=== PATIENT | female | born 1930 | race Caucasian/White ===

== ENCOUNTER → 2017-04-02 | Outpatient (CLI) | payer OTHER ==
[~2017-04-02] MED LIST: ASPI81 PO; CREON12 PO; ENAL5TAB PO; GLUCTAB PO; PREV30CA36 PO; SIMV80TA PO
--- NOTE | 2017-04-02 15:31 | RADRPT ---
EXAM DATE/TIME: 04/02/2017 14:41 [facility] COMPARISON: No previous studies available for comparison. INDICATIONS : Bilateral leg pain and swelling. MEDICAL HISTORY : Hypertension. Dibetic. SURGICAL HISTORY : None. ENCOUNTER: Initial ACUITY: 2 months PAIN SCORE: 10/10 LOCATION: Bilateral leg. TECHNIQUE: Venous ultrasound of the left and right leg was performed from the inguinal ligament to the proximal calf. Real-time, color Doppler and spectral tracing, compression and augmentation techniques were us ed. FINDINGS: RIGHT LEG: There is normal compressibility of the deep venous system from the inguinal region to the proximal ca lf. No echogenic clot is seen in the lumen of the common femoral, femoral, popliteal, and posterior tibial veins. There is a normal response of the venous system to proximal and distal augmentation an d respiration. Complex oblong collection in the right popliteal space consistent with Geiger's cyst m easuring approximately 6 cm. LEFT LEG: There is normal compressibility of the deep venous system from the inguinal region to the proximal ca lf. No echogenic clot is seen in the lumen of the common femoral, femoral, popliteal, and posterior tibial veins. There is a normal response of the venous system to proximal and distal augmentation an d respiration. Complex oblong collection in the left popliteal space consistent with Geiger's cyst me asuring 6.5 cm. CONCLUSION: No evidence of lower extremity DVT. 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 Knee MRI could be performed for confirmation if clinically indicate d Ruslan Pham MD on April 02, 2017 at 15:27 Board Certified Radiologist. This report was verified electronically.
== END ==
LOC: HRAD 14:22
PROVIDERS: ATTEND Internal Medicine Interventional Cardiology
DX: M79.604 Pain in right leg (principal); M79.605 Pain in left leg; M79.89 Other specified soft tissue disorders
CPT/HCPCS: 93970

== ENCOUNTER 2017-05-06 12:15 | Emergency (ER) | payer OTHER ==
[~2017-05-06] VITALS: Ht 149.9 cm; Wt 85.5 kg
[2017-05-06 12:17] VITALS: BP 154/96; PULSE 77; RESP 16; TEMP 98; O2SAT 97
[2017-05-06] MEDS ORDERED: RANI150T PO (12:46)
[2017-05-06] MEDS ORDERED: TRAM50TA PO (12:46)
[2017-05-06] MEDS ORDERED: CARV6.252 PO (12:46)
[2017-05-06] MEDS ORDERED: CREON24 PO (12:46)
[2017-05-06] MEDS ORDERED: PRAZ2CAP PO (12:46)
[2017-05-06] MEDS ORDERED: HYDR12.57 PO (12:46)
[2017-05-06] MEDS ORDERED: PIOG15TA5 PO (12:46)
[2017-05-06] MEDS ORDERED: PRAV80TA2 PO (12:46)
[2017-05-06] MEDS ORDERED: METO5TAB PO (12:46)
[2017-05-06] MEDS ORDERED: ACETAMINOPHEN/HYDROcodone 325 MG/5 MG TAB PO ONE (13:00)
--- NOTE | 2017-05-06 13:01 | PD ---
HPI Chief Complaint: Back/ Neck Pain or Injury Time Seen by Provider: 12:43 Travel History International Travel<30 days: No Contact w/Intl Traveler<30days: No Traveled to known affect area: No History of Present Illness HPI This patient is brought in by her son. She complains of back pain. Duration of 3 days. Severity is moderate. Worse with movement. It's rather diffuse mid and low back pain left and right sides. There is been no injury. She has no fever or urinary complaints. The back pain radiates into her buttocks. She' s been using a wheelchair because of knee pain, not her back troubles. No alleviating factors. She tried some aspirin without relief PFSH Past Medical History Arthritis: No Autoimmune Disease: No Blood Disorders: No Anxiety: No Depression: No Heart Rhythm Problems: No Cancer: Yes (skin) Cardiovascular Problems: No High Cholesterol: No Chemotherapy: No Chest Pain: No Congestive Heart Failure: No Diabetes: Yes Patient Takes Glucophage: No Endocrine: No GERD: Yes Genitourinary: No Headaches: Yes Hepatitis: No Hiatal Hernia: No Hypertension: No Immune Disorder: No Kidney Stones: No Musculoskeletal: No Neurologic: No Psychiatric: No Respiratory: No Myocardial Infarction: No Radiation Therapy: No Renal Failure: No Sickle Cell Disease: No Thyroid Disease: No Tetanus Vaccination: > 5 Years Influenza Vaccination: Yes ?: Not Menopausal: Yes Past Surgical History Abdominal Surgery: No AICD: No Cardiac Surgery: No Ear Surgery: No Endocrine Surgery: No Eye Surgery: Yes (froylan cataract removal) Genitourinary Surgery: No Gynecologic Surgery: No Joint Replacement: No Oral Surgery: No Pacemaker: No Thoracic Surgery: No Social History Alcohol Use: No Tobacco Use: No Substance Use: No Allergies-Medications (Allergen,Severity, Reaction): Coded Allergies: No Known Allergies (Verified Adverse Reaction, Unknown, 05/06/17) Reported Meds & Prescriptions Reported Meds & Active Scripts Active Reported Pioglitazone (Pioglitazone HCl) 15 Mg Tab 15 Mg PO DAILY Prazosin (Prazosin HCl) 2 Mg Cap 2 Mg PO TID Hydrochlorothiazide 12.5 Mg Cap 12.5 Mg PO DAILY Pravastatin 80 Mg Tab 80 Mg PO DAILY Ranitidine (Ranitidine HCl) 150 Mg Tab 150 Mg PO BID Carvedilol 6.25 Mg Tab 6.25 Mg PO BID Metoclopramide (Metoclopramide HCl) 5 Mg Tab 5 Mg PO TIDAC Tramadol (Tramadol HCl) 50 Mg Tab 50 Mg PO Q8H PRN Creon (Amylase/Lipase/Protease) 24,000-76,000-120,000 Units Cap 1 Cap PO TIDPC Review of Systems General / Constitutional: No: Fever Eyes: No: Visual changes HENT: No: Headaches Cardiovascular: No: Chest Pain or Discomfort Respiratory: No: Shortness of Breath Gastrointestinal: No: Abdominal Pain Genitourinary: No: Dysuria Musculoskeletal: Positive: Pain Skin: No Rash Neurologic: No: Weakness Psychiatric: No: Depression Endocrine: No: Polydipsia Hematologic/Lymphatic: No: Easy Bruising Physical Exam Narrative GENERAL: Well-nourished, well-developed patient with back pain . He speaks Kyr[place]. Her son does fluid interpretation and is comfortable with his skills in that regard. SKIN: Focused skin assessment reveals no rash and nodules. Skin is Warm and dry. HEAD: Atraumatic. Normocephalic. EYES: Pupils equal and round. No scleral icterus. No injection or drainage. ENT: No nasal bleeding or discharge. Mucous membranes pink and moist. NECK: Trachea midline. No JVD. CARDIOVASCULAR: Regular rate and rhythm. No murmur appreciated. RESPIRATORY: No accessory muscle use. Clear to auscultation. Breath sounds equal bilaterally. GASTROINTESTINAL: Abdomen soft, non-tender, nondistended. Hepatic and splenic margins not palpable. MUSCULOSKELETAL: No obvious deformities. No clubbing. No cyanosis. No edema. Examination of the back reveals diffuse tenderness of the mid and low back. There is no redness bruising or warmth. Negative straight leg and cross straight leg raise. NEUROLOGICAL: Awake and alert. No obvious cranial nerve deficits. Motor grossly within normal limits. Normal speech. PSYCHIATRIC: Appropriate mood and affect; insight and judgment normal. Data Data Last Documented VS Vital Signs Date Time Temp Pulse Resp B/P (MAP) Pulse Ox O2 Delivery O2 Flow Rate FiO2 05/06/17 12:17 98.0 77 16 154/96 (115) 97 Orders Orders Iv Access Insert/Monitor (05/06/17 12:52) Complete Blood Count With Diff (05/06/17 12:52) Basic Metabolic Panel (Bmp) (05/06/17 12:52) Ct Abd/Pel W/O Iv Contrast (05/06/17 ) Urinalysis - C+S If Indicated (05/06/17 12:52) Acetamin-Hydrocod 325-5 Mg ([place] 5-325 (05/06/17 13:00) Labs Laboratory Tests Test 05/06/17 13:00 White Blood Count 5.5 TH/MM3 Red Blood Count 3.58 MIL/MM3 Hemoglobin 8.5 GM/DL Hematocrit 27.1 % Mean Corpuscular Volume 75.7 FL Mean Corpuscular Hemoglobin 23.8 PG Mean Corpuscular Hemoglobin Concent 31.5 % Red Cell Distribution Width 15.7 % Platelet Count 589 TH/MM3 Mean Platelet Volume 10.0 FL Neutrophils (%) (Auto) 54.4 % Lymphocytes (%) (Auto) 28.0 % Monocytes (%) (Auto) 9.8 % Eosinophils (%) (Auto) 5.0 % Basophils (%) (Auto) 2.8 % Neutrophils # (Auto) 3.0 TH/MM3 Lymphocytes # (Auto) 1.5 TH/MM3 Monocytes # (Auto) 0.5 TH/MM3 Eosinophils # (Auto) 0.3 TH/MM3 Basophils # (Auto) 0.2 TH/MM3 CBC Comment AUTO DIFF Differential Comment AUTO DIFF CONFIRMED Platelet Estimate HIGH Platelet Morphology Comment NORMAL Ovalocytes 1+ Urine Color YELLOW Urine Turbidity CLEAR Urine pH 5.5 Urine Specific [place] LESS/EQUAL 1.005 Urine Protein NEG mg/dL Urine Glucose (UA) NEG mg/dL Urine Ketones NEG mg/dL Urine Occult Blood NEG Urine Nitrite NEG Urine Bilirubin NEG Urine Urobilinogen 0.2 MG/DL Urine Leukocyte Esterase NEG Urine RBC 0-2 /hpf Urine WBC 0-2 /hpf Urine Squamous Epithelial Cells 0-5 /hpf Urine Bacteria NONE /hpf Microscopic Urinalysis Comment CULT NOT INDICATED Blood Urea Nitrogen 18 MG/DL Creatinine 1.70 MG/DL Random Glucose 141 MG/DL Calcium Level 9.0 MG/DL Sodium Level 137 MEQ/L Potassium Level 3.7 MEQ/L Chloride Level 102 MEQ/L Carbon Dioxide Level 25.0 MEQ/L Anion Gap 10 MEQ/L Estimat Glomerular Filtration Rate 29 ML/MIN [facility] Medical Decision Making Medical Screen Exam Complete: Yes Emergency Medical Condition: Yes Medical Record Reviewed: Yes Differential Diagnosis Kidney stone, sciatica, musculoskeletal back pain, AAA Narrative Course I have reviewed the patient's electronic medical record. Patient does not have neurologic deficit. Her pain seems musculoskeletal given the readily reproducible tenderness but it is very diffuse Is been no injury. Difficult to explain Due to the fact is not very obvious says to the cause, I've ordered a significant workup IV placed and labs drawn I gave her something for pain Urinalysis is clean CT of abdomen and pelvis shows numerous incidental findings but nothing emergent or dangerous. I gave a copy of the printout to her son and explained it CBC shows anemia which is chronic but I discussed with him and her doctor should follow this up Metabolic profile shows renal insufficiency which is chronic Patient stable for outpatient follow-up She looks comfortable I wrote some Tylenol 3 to use as needed Diagnosis Primary Impression: Back pain Qualified Codes: M54.5 - Low back pain Additional Instructions: The patient was advised to follow up with their physician and return if they worsen. The patient was warned about potential sedation for the medications they will receive on prescription. Med/Other Pt SpecificInfo: Prescription(s) given Scripts Acetaminophen-Codeine (Tylenol-Codeine #3) 300-30 mg Tab 1 TAB PO Q6H Y for PAIN, #20 TAB 0 Refills Prov: Miki Shultz MD 05/06/17 Disposition: DISCHARGE HOME Condition: Stable Miki Shultz MD May 06, 2017 13:01
[2017-05-06 13:07] LABS: BILIRUBIN, URINE NEG (NEG); BLOOD, URINE NEG (NEG); GLUCOSE,URINE NEG (NEG); KETONE, URINE NEG (NEG); NITRITE,URINE NEG (NEG); PH, URINE 5.5 (5.0-8.5); URINE COLOR YELLOW (YELLW/STRAW); URINE LEUKOCYTE ESTERASE NEG (NEG)
[2017-05-06 13:10] LABS: BASOPHIL # 0.2 TH/MM3 (0-0.2); BASOPHIL % 2.8 % (0.0-2.0); EOSINOPHIL # 0.3 TH/MM3 (0-0.4); HEMATOCRIT 27.1 % (35.0-46.0); HEMOGLOBIN 8.5 GM/DL (11.6-15.3); LYMPHOCYTE # 1.5 TH/MM3 (1.0-4.8); MEAN CELL VOLUME 75.7 FL (80.0-100.0); MEAN CORPUSCULAR HEMOGLOBIN 23.8 PG (27.0-34.0); MEAN CORPUSCULAR HGB CONC 31.5 % (32.0-36.0); MONO % 9.8 % (0.0-8.0); MONOCYTE # 0.5 TH/MM3 (0-0.9); NEUT % 54.4 % (16.0-70.0); PLATELET COUNT 589 TH/MM3 (150-450); RED BLOOD COUNT 3.58 MIL/MM3 (4.00-5.30); RED CELL DISTRIBUTION WIDTH 15.7 % (11.6-17.2); WHITE BLOOD COUNT 5.5 TH/MM3 (4.0-11.0)
[2017-05-06 13:14] LABS: RBC, URINE 0-2 /hpf (0-3); SQUAMOUS EPITHELIAL CELL URINE 0-5 /hpf (0-5); WBC, URINE 0-2 /hpf (0-5)
[2017-05-06 13:23] LABS: CREATININE 1.7 MG/DL (0.50-1.00); OVALOCYTES 1+ (NORMAL)
--- NOTE | 2017-05-06 13:28 | RADRPT ---
EXAM DATE/TIME: 05/06/2017 13:12 [facility] COMPARISON: No previous studies available for comparison. INDICATIONS : Lower back pain for two days. Evaluate for renal stone. ORAL CONTRAST: No oral contrast ingested. RADIATION DOSE: 24.66 CTDIvol (mGy) MEDICAL HISTORY : Hypertension. Gastroesophageal reflux disease. Diabetes. SURGICAL HISTORY : None. ENCOUNTER: Initial ACUITY: 2 days PAIN SCALE: 9/10 LOCATION: abdomen TECHNIQUE: Volumetric scanning of the abdomen and pelvis was performed. Using automated exposure control and ad justment of the mA and/or kV according to patient size, radiation dose was kept as low as reasonably achievable to obtain optimal diagnostic quality images. DICOM format image data is available electro nically for review and comparison. FINDINGS: Lung bases are clear. Small pericardial effusion. Liver, gallbladder, right kidney, spleen, pancreas, adrenals are unremarkable. 3.2 cm left upper pole cyst, adjacent exophytic cysts in the left upper p ole kidney measuring 1.3 cm. Atherosclerotic calcifications of the aorta and iliac vessels. Urinary b ladder, uterus unremarkable. There is diverticulosis of the sigmoid colon without diverticulitis. Cedrick cending colonic diverticuli are also seen. Small fat containing umbilical appendix is normal. Ovaries are normal. No adenopathy or aneurysm. No renal calculi. Bladder unremarkable. There are degenerativ e changes of the spine noted. Hemangioma in the L2 vertebral body. CONCLUSION: 1. Diverticulosis without diverticulitis. 2. Small pericardial effusion. 3. Left renal cysts. 4. Fat containing umbilical hernia. Jordan Marmolejo MD on May 06, 2017 at 13:24 Board Certified Radiologist. This report was verified electronically.
[2017-05-06] MEDS ORDERED: TYLETAB34 PO (14:04)
[2017-05-06 14:15] VITALS: BP 161/49; PULSE 70; RESP 18; O2SAT 99
== END 2017-05-06 14:35 | disposition home or self-care (01) ==
LOC: PHED 12:15
DX: M54.5 Low back pain (principal); D64.9 Anemia, unspecified; E11.22 Type 2 diabetes mellitus with diabetic chronic kidney disease; Z79.84 Long term (current) use of oral hypoglycemic drugs
CPT/HCPCS: 74176; 80048; 81001; 85025; 99284